=== PATIENT | male | born 1995 | race Caucasian/White ===

== ENCOUNTER 2022-07-26 01:45 | Emergency (ER) | payer MEDICAID, OTHER ==
[~2022-07-26] VITALS: Ht 182.9 cm; Wt 132.0 kg
[2022-07-26] MEDS ORDERED: ACETAMINOPHEN 325MG TABLET PO ONE (05:30)
[2022-07-26 06:47] VITALS: BP 130/75
== END 2022-07-26 07:12 | disposition home or self-care (01) ==
LOC: ER 01:45
DX: S09.8XXA Other specified injuries of head, initial encounter (principal); X58.XXXA Exposure to other specified factors, initial encounter; Y93.89 Activity, other specified; Y92.89 Other specified places as the place of occurrence of the external cause; Y99.8 Other external cause status
CPT/HCPCS: 99284